=== PATIENT | male | born 1945 | race Caucasian/White ===

== ENCOUNTER 2023-06-03 07:26 | Day surgery (SDC) | payer OTHER ==
[~2023-06-03] VITALS: Ht 175.3 cm; Wt 77.1 kg
[2023-06-03] MEDS ORDERED: MIDAZOLAM HCL 5 MG/5 ML VIAL ONE ×2 (07:32→08:20)
[2023-06-03] MEDS ORDERED: fentaNYL CITRATE/PF 100 MCG/2 ML AMP ONE (07:32)
[2023-06-03 07:50] VITALS: O2SAT 99
[2023-06-03 11:57] VITALS: BP_SYST 116; PULSE 66; RESP 16
== END 2023-06-03 09:30 | disposition home or self-care (01) ==
LOC: SDS 07:26 → SMU 07:26 → SDS 09:30
PROVIDERS: ATTEND Internal Medicine Gastroenterology
DX: D64.9 Anemia, unspecified (principal); K29.50 Unspecified chronic gastritis without bleeding; K29.80 Duodenitis without bleeding; K64.8 Other hemorrhoids; K57.30 Diverticulosis of large intestine without perforation or abscess without bleeding; I10 Essential (primary) hypertension; E78.5 Hyperlipidemia, unspecified; Z87.891 Personal history of nicotine dependence; Z79.899 Other long term (current) drug therapy
CPT/HCPCS: 45378; 43239; 87081; 36415; 88305; 88312; 88313; 99152; 99153; G0378; J2250; J3010